=== PATIENT | female | born 1995 | race African-American/Black ===

== ENCOUNTER 2020-12-28 14:00 | Outpatient (RCR) | payer OTHER, SELFPAY ==
--- NOTE | 2020-12-18 16:25 | MHC.PT.EP ---
[facility] [place] Office [place] Office [place] Office [address] [phone] F: [phone] F: [phone] F: [phone] F: [phone] Physical Therapy Plan of Care Date of Evaluation: Date of Surgery: Diagnosis: Migraines Assessment: Bonny is a pleasant 25 yo female who presents with increasing migraine symptoms over the last two months including increased pain, increased dizziness, increased nausea, some light and motion sensativity. Impairments include increased tissue tension and multiple trigger points, decreased cervical ROM and weakness of upper back musculature. 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 Frequency and Duration: The patient will be seen 2 x week for 4 weeks Short Term Goals: initiate HEP and promote self management of symptoms in 2 visits [facility] Goals: full, painfree cervical ROM in 4 weeks return to work tasks without pain greater than 2/10 in 4 weeks to report painfree ADLs in 4 weeks with headaches less than 1 day per week Treatment Plan: Modalities to reduce pain, spasms and effusion. Manual therapy to restore motion and function. Therapeutic exercise to improve strength and flexibility. Neuromuscular re-education for posture and balance. Therapeutic activities to return to functional activities of daily living. Electronically signed by: Yarelis Vaughn PT, DPT Please sign and return to therapist. Thank you for your referral.
--- NOTE | 2021-02-14 07:45 | MHC.PT.DC ---
[facility] [place] Office [place] Office [place] Office [address] Galdino Galvan [address] [phone] F: [phone] F: [phone] F: [phone] F: [phone] Physical Therapy Discharge Report Diagnosis: Migraines Date of Surgery: Date of Evaluation: 12/18/20 Date of Discharge: 02/14/21 Treatments to Date: 3 Cancellations to Date: 1 No Shows to Date: 0 Discharge Status: Patient Elected to Stop Discharge Summary: Bonny attended 3 visits of PT and has not returned for over a month and is DCed at this time. Status is unknown. Electronically signed by: Yarelis Vaughn PT, DPT Please sign and return to therapist. Thank you for your referral.
== END 2021-02-14 07:46 | disposition home or self-care (01) ==
LOC: HO.PT 14:00
PROVIDERS: PCP Internal Medicine; Visit Provider Psychiatry & Neurology Neurology
DX: M54.2 Cervicalgia (principal); G43.909 Migraine, unspecified, not intractable, without status migrainosus
CPT/HCPCS: 97140; 97162